=== PATIENT | female | born 1935 | race Caucasian/White ===

== ENCOUNTER 2023-06-21 14:02 | Inpatient (IN) | payer OTHER, MEDICARE ==
[~2023-06-21] VITALS: Ht 152.4 cm; Wt 65.8 kg
[2023-06-21 14:02] VITALS: BP_SYST 231; PULSE 82; RESP 19; TEMP 98; O2SAT 98
[2023-06-21] MEDS: NACL 0.9% 1,000 ML IV ONE (15:03)
[2023-06-21 15:12] LABS: BASOPHILS % (AUTO) 0.2 % (0.0-2.0); EOSINOPHILS # (AUTO) 0.8 K/uL (0.0-0.4); EOSINOPHILS % (AUTO) 7.5 % (0.0-4.0); HEMATOCRIT 38.3 % (36-48); HEMOGLOBIN 12.8 g/dL (12.0-16.0); LYMPHOCYTES # (AUTO) 1.6 K/uL (1.0-5.5); LYMPHOCYTES % (AUTO) 14.3 % (20.5-51.5); MEAN CORPUSCULAR HEMOGLOBIN 29 pg (27-31); MEAN CORPUSCULAR HGB CONC 33 % (32-36); MEAN CORPUSCULAR VOLUME 86 fL (79.0-98.0); MONOCYTES # (AUTO) 1.2 K/uL (0.0-1.0); MONOCYTES % (AUTO) 10.8 % (1.7-9.3); NEUTROPHILS # (AUTO) 7.6 K/uL (1.8-7.7); NEUTROPHILS % (AUTO) 67.2 % (40.0-70.0); PLATELET COUNT (AUTO) 595 K/uL (130-430); RED BLOOD CELL COUNT(AUTO) 4.45 MIL/uL (4.2-6.2); RED CELL DISTRIBUTION WIDTH 14.9 % (9.0-15.0); WHITE BLOOD COUNT (AUTO) 11.3 K/uL (4.8-10.8)
[2023-06-21] MEDS ORDERED: iohexoL 350 mgI/mL, 100 ML INFUS..BTL IV ONE (15:15)
[2023-06-21 15:43] LABS: ANION GAP 9 (5-15); CARBON DIOXIDE 26 mmol/L (23-29); CHLORIDE 104 mmol/L (98-107); CREATININE 1.37 mg/dL (0.55-1.30); GLUCOSE 93 mg/dL (74-106); POTASSIUM 4.2 mmol/L (3.5-5.1); SODIUM SERUM 139 mmol/L (136-145); UREA NITROGEN, BLOOD 30 mg/dL (8-21)
[2023-06-21 15:59] LABS: BILIRUBIN,URINE NEGATIVE (NEGATIVE); BLOOD, URINE NEGATIVE (NEGATIVE); CLARITY/URINE CLEAR (CLEAR); COLOR,URINE YELLOW (YELLOW); GLUCOSE,URINE NEGATIVE (NEGATIVE); KETONES,URINE NEGATIVE (NEGATIVE); LEUKOCYTE ESTERASE ,URINE NEGATIVE (NEGATIVE); NITRITE, URINE NEGATIVE (NEGATIVE); PROTEIN URINE 1+ (NEGATIVE); UROBILINOGEN,URINE 0.2 (0.2-1.0)
[2023-06-21 16:04] LABS: BACTERIA,URINE FEW /HPF (None Seen); MUCUS,URINE 2+ /LPF (None Seen); RBC,URINE 0-3 /HPF (0-3); WBC,URINE 0-3 /HPF (0-3)
[2023-06-21] MEDS: cloNIDine HCL 0.1 MG TABLET PO ONE (16:12)
[2023-06-21] MEDS: ASPIRIN 325 MG TABLET PO ONE (17:16)
[2023-06-21] MEDS: NORMAL SALINE 5 ML DISP.SYRIN IVF SCH (22:26)
[2023-06-21] MEDS ORDERED: ESTR0.3T3 PO (22:38)
[2023-06-21] MEDS ORDERED: HYDR200T80 PO (22:38)
[2023-06-21] MEDS ORDERED: VALS160T2 PO (22:38)
[2023-06-21] MEDS ORDERED: DESL5TAB PO (23:01)
[2023-06-21] MEDS ORDERED: MIRA25TA PO (23:01)
[2023-06-21] MEDS ORDERED: VALS80TA2 PO (23:01)
[2023-06-21] MEDS ORDERED: RIVA10TA PO (23:03)
[2023-06-21] MEDS ORDERED: [UNRECOGNIZED DRUG - CODE] (23:05)
[2023-06-22 00:40] VITALS: BP_SYST 169; PULSE 68; RESP 19; TEMP 98.4; O2SAT 98
[2023-06-22 08:17] VITALS: BP_SYST 159; PULSE 65; RESP 20; TEMP 97.7; O2SAT 98
[2023-06-22 11:51] LABS: BASOPHILS % (AUTO) 0.2 % (0.0-2.0); EOSINOPHILS % (AUTO) 9.8 % (0.0-4.0); HEMATOCRIT 35.8 % (36-48); HEMOGLOBIN 12.1 g/dL (12.0-16.0); LYMPHOCYTES # (AUTO) 1.6 K/uL (1.0-5.5); LYMPHOCYTES % (AUTO) 16.1 % (20.5-51.5); MEAN CORPUSCULAR HEMOGLOBIN 30 pg (27-31); MEAN CORPUSCULAR HGB CONC 34 % (32-36); MEAN CORPUSCULAR VOLUME 88 fL (79.0-98.0); MONOCYTES # (AUTO) 1.1 K/uL (0.0-1.0); MONOCYTES % (AUTO) 11.5 % (1.7-9.3); NEUTROPHILS # (AUTO) 6.1 K/uL (1.8-7.7); NEUTROPHILS % (AUTO) 62.4 % (40.0-70.0); PLATELET COUNT (AUTO) 535 K/uL (130-430); RED BLOOD CELL COUNT(AUTO) 4.08 MIL/uL (4.2-6.2); RED CELL DISTRIBUTION WIDTH 14.9 % (9.0-15.0); WHITE BLOOD COUNT (AUTO) 9.8 K/uL (4.8-10.8)
[2023-06-22 12:03] LABS: ANION GAP 3 (5-15); CALCIUM 8.4 mg/dL (8.4-11.0); CARBON DIOXIDE 29 mmol/L (23-29); CHLORIDE 106 mmol/L (98-107); CREATININE 1.01 mg/dL (0.55-1.30); GLUCOSE 97 mg/dL (74-106); POTASSIUM 3.8 mmol/L (3.5-5.1); SODIUM SERUM 138 mmol/L (136-145); UREA NITROGEN, BLOOD 21 mg/dL (8-21)
[2023-06-22 13:22] VITALS: BP_SYST 148; PULSE 63; RESP 20; TEMP 95.7; O2SAT 98
== END 2023-06-22 16:10 | disposition left against medical advice (07) | DRG 77 ==
LOC: SED 14:02 → STU 22:08
PROVIDERS: ADMIT Internal Medicine; ATTEND Internal Medicine
DX: I67.4 Hypertensive encephalopathy (principal); N17.0 Acute kidney failure with tubular necrosis; G45.9 Transient cerebral ischemic attack, unspecified; I10 Essential (primary) hypertension; M25.561 Pain in right knee; E07.9 Disorder of thyroid, unspecified; Z79.899 Other long term (current) drug therapy; Z88.0 Allergy status to penicillin
CPT/HCPCS: 36415; 70450-TC; 70496; 70498; 70551; 71045; 80048; 81000; 81001; 81015; 83880; 84484; 85025; 93005; 96360; 97112-GP; 97116-GP; 99285; G0378; J7030; Q9967